=== PATIENT | male | born 1995 | race Caucasian/White ===

== ENCOUNTER 2017-07-27 21:26 | Emergency (ER) | payer BC ==
[~2017-07-27] VITALS: Ht 180.3 cm; Wt 99.9 kg
[2017-07-27 21:31] VITALS: BP 161/74; PULSE 91; RESP 18; TEMP 97.7; O2SAT 98
[2017-07-27] MEDS ORDERED: CLAR10CA3 PO (21:35)
--- NOTE | 2017-07-27 22:00 | PD ---
HPI Chief Complaint: Injury Time Seen by Provider: 21:50 Travel History International Travel<30 days: No Contact w/Intl Traveler<30days: No Traveled to known affect area: No History of Present Illness HPI Patient is a 21-year-old male who presents the emergency room complaints of pain to his right lower extremity. Patient reports that he was working out today, reports that he hit his right anterior tib-fib on bar. Patient reports that this occurred this morning. Patient reports that he was trying to "tough it out" all day but reports pain to his right tib-fib. Patient has been ambulating all day on both extremities. PFSH Past Medical History Cardiovascular Problems: Yes (PACEMAKER) Diminished Hearing: No Immunizations Current: Yes Tetanus Vaccination: Unknown Influenza Vaccination: No Past Surgical History Cardiac Surgery: Yes (PACEMAKER) Social History Alcohol Use: Yes (OCC) Tobacco Use: Yes (OCC) Substance Use: No Allergies-Medications (Allergen,Severity, Reaction): Coded Allergies: Iodinated Contrast- Oral and IV Dye (Verified Allergy, Unknown, Anaphylaxis, 07/27/17) HEART STOPPED Reported Meds & Prescriptions Reported Meds & Active Scripts Active Reported Claritin (Loratadine) 10 Mg Cap 10 Mg PO DAILY Review of Systems General / Constitutional: No: Fever Eyes: No: Visual changes HENT: No: Headaches Cardiovascular: No: Chest Pain or Discomfort Respiratory: No: Shortness of Breath Gastrointestinal: No: Abdominal Pain Genitourinary: No: Dysuria Musculoskeletal: Positive: Pain (Right tib-fib) Skin: No Rash Neurologic: No: Weakness Psychiatric: No: Depression Endocrine: No: Polydipsia Hematologic/Lymphatic: No: Easy Bruising Physical Exam Narrative GENERAL: Well-nourished, well-developed patient. SKIN: Focused skin assessment warm/dry. HEAD: Normocephalic. EYES: No scleral icterus. No injection or drainage. NECK: Supple, trachea midline. No JVD or lymphadenopathy. CARDIOVASCULAR: Regular rate and rhythm without murmurs, gallops, or rubs. RESPIRATORY: Breath sounds equal bilaterally. No accessory muscle use. GASTROINTESTINAL: Abdomen soft, non-tender, nondistended. MUSCULOSKELETAL: No cyanosis, or edema. Patient with abrasion to the right anterior tib-fib, no obvious open fractures, patient with normal range of motion to right hip, right knee, right ankle, pulses intact, neurovascular intact. Left lower extremity: Normal exam BACK: Nontender without obvious deformity. No CVA tenderness. Data Data Last Documented VS Vital Signs Date Time Temp Pulse Resp B/P (MAP) Pulse Ox O2 Delivery O2 Flow Rate FiO2 07/27/17 21:36 (103) 07/27/17 21:31 97.7 91 18 98 Orders Orders Tibia/Fibula (Ap/Lat) (07/27/17 ) Ibuprofen (Motrin) (07/27/17 22:30) MDM Medical Decision Making Medical Screen Exam Complete: Yes Emergency Medical Condition: Yes Medical Record Reviewed: Yes Interpretation(s) Vital Signs Date Time Temp Pulse Resp B/P (MAP) Pulse Ox O2 Delivery O2 Flow Rate FiO2 07/27/17 21:36 (103) 07/27/17 21:31 97.7 91 18 161/74 (103) 98 Differential Diagnosis tib/fib fx vs sprain, contusion, abrasion Narrative Course X-ray of the anterior tib-fib ordered. Last Impressions Tibia/Fibula X-Ray 07/27/17 0000 Signed Impressions: Service Date/Time: Thursday, July 27, 2017 22:06 - CONCLUSION: 1. No acute fracture or dislocation. Bert Zhong MD Diagnosis Primary Impression: Leg abrasion Qualified Codes: S80.811A - Abrasion, right lower leg, initial encounter Patient Instructions: General Instructions Additional Instructions: Please take acetaminophen or Tylenol for pain Apply ice to leg Return to the ER as needed Disposition: 01 DISCHARGE HOME Condition: Stable Martina Pleitez DO Jul 27, 2017 22:00
--- NOTE | 2017-07-27 22:27 | RADRPT ---
EXAM DATE/TIME: 07/27/2017 22:06 [facility] COMPARISON: No previous studies available for comparison. INDICATIONS : Right anterior midshaft tibia pain after falling onto a weightlifting bar while working out today. MEDICAL HISTORY : None. SURGICAL HISTORY : None. ENCOUNTER: Initial ACUITY: 1 day PAIN SCORE: 5/10 LOCATION: Right tibia FINDINGS: Two view examination of the right tibia demonstrates no evidence of fracture or dislocation. Bony mi neralization is normal. The soft tissue structures are intact. CONCLUSION: 1. No acute fracture or dislocation. Bert Zhong MD on July 27, 2017 at 22:24 Board Certified Radiologist. This report was verified electronically.
[2017-07-27] MEDS ORDERED: IBUPROFEN 600 MG TAB PO ONE (22:30)
== END 2017-07-27 22:43 | disposition home or self-care (01) ==
LOC: PHEFT 21:26
DX: S80.811A Abrasion, right lower leg, initial encounter (principal); W22.8XXA Striking against or struck by other objects, initial encounter; Z72.0 Tobacco use; Z79.899 Other long term (current) drug therapy
CPT/HCPCS: 73590; 99283